=== PATIENT | female | born 1940 | race African-American/Black ===

== ENCOUNTER 2018-12-04 13:48 | Emergency (ER) | payer MEDICARE, OTHER ==
[2018-12-04 14:01] VITALS: BMI 34.0
[2018-12-04 14:13] VITALS: RESP 18
--- NOTE | 2018-12-04 14:55 | ED PDOC ---
Arrival/HPI - General Chief Complaint: Abdominal Pain Time Seen by Provider: 12/04/18 13:50 Historian: Patient - History of Present Illness Narrative History of Present Illness (Text): 12/04/18 14:55 A 77 year old female, whose past medical history includes diabetes and asthma, presents to the emergency department complaining of right upper quadrant pain for the past 2 weeks. Patient reports pain radiates throughout entire abdomen and left flank. Patient ntoes expereincing vomiting, last episode 2 days ago, and diarrhea. Patient denies any chills, shortness of breath, chest pain, headache, dizziness, or any other complaints. PMD: Dean Palencia Time/Duration: > week (2 weeks) Symptom Onset: Gradual Symptom Course: Unchanged Activities at Onset: Light Context: Home Past Medical History - Provider Review Nursing Documentation Reviewed: Yes - Infectious Disease Hx of Infectious Diseases: None - Tetanus Immunization Tetanus Immunization: Unknown - Cardiac Hx Hypertension: Yes - Pulmonary Hx Asthma: Yes - Neurological Hx Neurological Disorder: No - HEENT Hx HEENT Disorder: No - Endocrine/Metabolic Hx Endocrine Disorders: Yes Other/Comment: pre-diabetic - Musculoskeletal/Rheumatological Hx Arthritis: Yes - Psychiatric Hx Depression: No Hx Emotional Abuse: No Hx Physical Abuse: No Hx Substance Use: No - Past Surgical History Past Surgical History: Unable to Obtain - Anesthesia Hx Anesthesia: No - Suicidal Assessment Feels Threatened In Home Enviroment: No Family/Social History - Physician Review Nursing Documentation Reviewed: Yes Family/Social History: No Known Family HX Smoking Status: Never Smoked Hx Alcohol Use: No Hx Substance Use: No Hx Substance Use Treatment: No Allergies/Home Meds Allergies/Adverse Reactions: Allergies ciprofloxacin Adverse Reaction (Verified 12/04/18 14:39) RASH Home Medications: Home Meds Medication Instructions Recorded Confirmed Acetaminophen/Diphenhydramine 500 mg PO BID 12/04/18 12/04/18 [Tylenol Pm Ex-Strength Caplet] Fluticasone/Vilanterol 200/25 1 puff INH PRN PRN 12/04/18 12/04/18 [Breo Ellipta 200-25 Mcg INH] Metformin HCl [Metformin HCl ER] 500 mg PO DAILY 12/04/18 12/04/18 Metoprolol Tartrate [Lopressor] 50 mg PO BID 12/04/18 12/04/18 Montelukast Sodium [Singulair] 10 mg PO DAILY 12/04/18 12/04/18 Potassium CL 10 MEQ/50 ML 10 meq PO DAILY 12/04/18 12/04/18 [Potassium CL 10MEQ/50ML STERILE WATER] Theophylline [Luis Daniel-24 Tab] 300 mg PO DAILY 12/04/18 12/04/18 Review of Systems - Physician Review All systems were reviewed & negative as marked: Yes - Review of Systems Constitutional: Fevers Respiratory: absent: SOB Cardiovascular: absent: Chest Pain Gastrointestinal: Abdominal Pain, Diarrhea, Vomiting Neurological: absent: Headache, Dizziness Physical Exam - Physical Exam Narrative Physical Exam (Text): 12/04/18 14:55 Gen: VS reviewed, alert, well developed, well nourished, nontoxic, mild distress. ENT: normal pharynx. Eye: EOMI, PERRL. Neck: no JVD, supple, no adenopathy. CV: regular rate, regular rhythm, no rubs, no murmur, no gallops, S1, S2, pulses equal and strong. Pulm: no distress, clear to auscultation, no wheeze, no rhonchi, breath sounds equal, no rales. Abd: diffuse abdominal tenderness with some gaurding, no rebound, no rigidity, normal bowel sounds. Ext: no edema. Skin: good color, no rash, no cyanosis. Psych: responds appropriately to questions, normal affect. Neuro: oriented x 3, CN2-12 intact grossly, motor intact, sensation intact. Vital Signs Reviewed: Yes Vital Signs Temp Pulse Resp BP Pulse Ox 12/04/18 14:01 98.7 F 90 18 160/80 H 96 Temperature: Afebrile Blood Pressure: Hypertensive Pulse: Regular Respiratory Rate: Normal Appearance: Positive for: Well-Appearing, Non-Toxic Mental Status: Positive for: Alert and Oriented X 3 Medical Decision Making ED Course and Treatment: 12/04/18 14:55 Impression: 77 year old female presenting to the emergency room complaining of right upper quadrant pain. Plan: -- EKG -- Labs -- CBC -- IV fluids -- Ultrasound of gallbladder and pancreas -- Reassess and disposition Prior Visits: Notes and results from previous visits were reviewed. Progress Notes: 12/04/18 17:49 patient seen for nonspecific abdominal pain with associated nausea vomiting and diarrhea, stool nonbloody, patient afebrile, labs ok. Patient stable for discharge. Without clear concrete evidence of colitis, will defer empiric antibiotics at this time. Patient recommended to follow up with gastroenterramesh cerna. - RAD Interpretation Narrative RAD Interpretations (Text): PROCEDURE: Gallbladder Ultrasound Dictator : Greg Byrne MD Report Date : 12/04/2018 16:23:48 IMPRESSION: Mild fatty infiltration of the liver. No evidence of cholelithiasis or cholecystitis. No evidence of biliary obstruction. PROCEDURE: CT Abdomen and Pelvis with contrast Dictator : Greg Byrne MD Report Date : 12/04/2018 17:03:03 IMPRESSION: Small hiatal has small amount of retained fluid in distal esophagus of uncertain significance. Nonspecific sigmoid colitis. No evidence of diverticulitis. Transverse colonic diverticulosis. No bowel obstruction. Radiology Orders: 12/04/18 14:53 GALLBLADDER & PANCREAS [US] Stat Barkeep: Radiologist - Medication Orders Current Medication Orders: Sodium Chloride (Sodium Chloride 0.9%) 1,000 mls @ 150 mls/hr IV .[id number] [facility] - Scribe Statement The provider has reviewed the documentation as recorded by the Dank Meraz All medical record entries made by the Shengibe were at my direction and personally dictated by me. I have reviewed the chart and agree that the record accurately reflects my personal performance of the history, physical exam, medical decision making, and the department course for this patient. I have also personally directed, reviewed, and agree with the discharge instructions and disposition. Disposition/Present on Arrival - Present on Arrival Any Indicators Present on Arrival: No History of DVT/PE: No History of Uncontrolled Diabetes: No Urinary Catheter: No History of Decub. Ulcer: No History Surgical Site Infection Following: None - Disposition Have Diagnosis and Disposition been Completed?: Yes Diagnosis: Gastroenteritis Disposition: HOME/ ROUTINE Disposition Time: 17:50 Patient Plan: Discharge Condition: STABLE Discharge Instructions (ExitCare): Gastroenteritis (ED) Additional Instructions: return for any new or worsening symptoms. follow up with a olive pitter. Prescriptions: Dicyclomine [Dicyclomine HCl] 10 mg PO TID #15 cap Ondansetron [Zofran] 4 mg PO Q8H #12 tab Forms: VODECLIC (N[place]ian)
[2018-12-04] MEDS ORDERED: Sodium Chloride 0.9% 1,000 ML IV SCH (15:00)
[2018-12-04] MEDS ORDERED: Morphine 4 mg/ml ISec IVP STA (15:25)
[2018-12-04 15:35] LABS: BASO # 0.02 K/mm3 (0.0-2.0); BASO % 0.4 % (0.0-3.0); EOS # 0.1 (0.0-0.7); EOS % 2.3 % (1.5-5.0); GRAN # 2.91 (1.4-6.5); HEMOGLOBIN 11.1 g/dL (12.0-16.0); LYMPH # 2.1 (1.2-3.4); LYMPH % 38.1 % (22.0-35.0); MEAN CORPUSCULAR HEMOGLOBIN 24.1 pg (25.0-35.0); MEAN CORPUSCULAR HGB CONC 30.2 g/dl (31.0-37.0); MEAN PLATELET VOLUME 9.8 fl (7.0-11.0); MONO # 0.4 (0.1-0.6); MONO % 7.2 % (1.0-6.0); RBC 4.6 10^6/uL (3.5-6.1); RED CELL DISTRIBUTION WIDTH 13.8 % (11.5-14.5); WHITE BLOOD COUNT 5.6 10^3/uL (4.5-11.0)
[2018-12-04 15:43] LABS: ALB/GLOB RATIO 1.2 (1.1-1.8); ALBUMIN 4.2 g/dL (3.0-4.8); ALT/SGPT 29 U/L (7-56); AST/SGOT 30 U/L (14-36); BLOOD UREA NITROGEN 22 mg/dL (7-21); CALCIUM 9.4 mg/dL (8.4-10.5); GFR NON-AFRICAN AMERICAN > 60; LIPASE 88 U/L (23-300)
[2018-12-04] MEDS ORDERED: Iohexol 350 MG/100 ML VIAL ONE (16:05)
--- NOTE | 2018-12-04 16:27 | US ---
Date of service: 12/04/2018 HISTORY: pain, ?gallstones COMPARISON: None. TECHNIQUE: Sonographic evaluation of the right upper quadrant of the abdomen. FINDINGS: LIVER: Measures 15.5 cm in length. Diffusely increased echogenicity of the liver parenchyma. Consistent with fatty infiltration. No mass. No intrahepatic biliary ductal dilatation. GALLBLADDER: Unremarkable. No gallstones. COMMON BILE DUCT: Measures 6 mm. No stones. No dilatation. PANCREAS: Unremarkable as visualized. No mass. No ductal dilatation. RIGHT KIDNEY: Measures 10.5 cm in length. Normal echogenicity. No calculus, mass, or hydronephrosis. AORTA: No aneurysmal dilatation. IVC: Unremarkable. OTHER FINDINGS: None . IMPRESSION: Mild fatty infiltration of the liver. No evidence of cholelithiasis or cholecystitis. No evidence of biliary obstruction.
--- NOTE | 2018-12-04 17:06 | CT ---
Date of service: 12/04/2018 PROCEDURE: CT Abdomen and Pelvis with contrast HISTORY: diffuse abd pain with vomit COMPARISON: None. TECHNIQUE: Contrast dose: 100 mL Omnipaque 350 Radiation dose: Total exam DLP = 1033.33 mGy-cm. This CT exam was performed using one or more of the following dose reduction techniques: Automated exposure control, adjustment of the mA and/or kV according to patient size, and/or use of iterative reconstruction technique. FINDINGS: LOWER THORAX: Small hiatal hernia. Small amount of retained fluid in the distal esophagus with an air-fluid level. Uncertain significance. Possible GE reflux or lower esophageal sphincter dysfunction. No infiltrate/effusion. LIVER: Unremarkable. No gross lesion or ductal dilatation. GALLBLADDER AND BILE DUCTS: Unremarkable. PANCREAS: Unremarkable. No gross lesion or ductal dilatation. SPLEEN: Unremarkable. ADRENALS: Unremarkable. No mass. KIDNEYS AND URETERS: Unremarkable. No hydronephrosis. No solid mass. VASCULATURE: Unremarkable. No aortic aneurysm. There is atherosclerotic calcification of the abdominal aorta. BOWEL: There is mural thickening of the sigmoid colon without evidence of diverticular disease in the sigmoid colon. Possible nonspecific colitis. There diverticulosis of the transverse colon without evidence of diverticulitis and without evidence of mural thickening no bowel obstruction. No other abnormal bowel loops are identified. APPENDIX: Normal appendix. PERITONEUM: Unremarkable. No free fluid. No free air. LYMPH NODES: Unremarkable. No enlarged lymph nodes. BLADDER: Poorly distended. No gross abnormality. REPRODUCTIVE: Normal postmenopausal uterus. BONES: No acute fracture. Hemangioma of the T8 vertebral body incidentally noted. OTHER FINDINGS: None. IMPRESSION: Small hiatal has small amount of retained fluid in distal esophagus of uncertain significance. Nonspecific sigmoid colitis. No evidence of diverticulitis. Transverse colonic diverticulosis. No bowel obstruction.
[2018-12-04 18:03] VITALS: BP 124/68; PULSE 77; TEMP 98.3; O2SAT 95
--- NOTE | 2018-12-06 07:51 | CARD ---
APPROVED REPORT Date of service: 12/04/2018 EKG Measurement Heart [id number] <Conclusion> Normal sinus rhythm ST abnormality Abnormal ECG
== END 2018-12-04 18:03 | disposition home or self-care (01) ==
LOC: ED 13:48
DX: K52.9 Noninfective gastroenteritis and colitis, unspecified (principal); I10 Essential (primary) hypertension; J45.909 Unspecified asthma, uncomplicated
CPT/HCPCS: 74177; 76705; 80053; 83690; 85025; 93005; 96374; 96375; 96376; 99284; J2270; J2405; J7030; Q9967